=== PATIENT | female | born 1995 | race Caucasian/White ===

== ENCOUNTER 2016-12-11 13:03 | Emergency (ER) | payer OTHER ==
[2016-12-11 14:12] VITALS: BP 131/68
--- NOTE | 2016-12-11 14:29 | UC ---
Abdominal Pain Female HPI - HPI Summary HPI Summary: compalint of nausea vomiting and diarrhea that started 2 daysa go fever for the fisrt day but it resolved vomiting approx 2-3x day last epiosode of vomiting and diarrhea this morning able to drink fluids in between vomiting denies dysuria no close contacts with illness taking pepto bismal without relief - History of Current Complaint Chief Complaint: UCAbdominalPain Stated Complaint: DIARRHEA,VOMITTING Time Seen by Provider: 12/11/16 14:22 Hx Obtained From: Patient Hx Last Menstrual Period: 11/29/16 Allergies/Adverse Reactions: Allergies Allergy/AdvReac Type Severity Reaction Status Date / Time Penicillins Allergy Rash Verified 12/11/16 14:12 Home Medications: Home Medications Bismuth Subsalicylate [Pepto-Bismol Max Strength] 525 mg PO DAILY 12/11/16 [ History Confirmed 12/11/16] PMH/Surg Hx/FS Hx/Imm Hx Previously Healthy: Yes Endocrine History Of: Denies: Diabetes, Thyroid Disease, Hyperthyroidism, Hypothyroidism, Dyslipidemia Cardiovascular History Of: Denies: Cardiac Disorders, Hypertension, Pacemaker/ICD, Myocardial Infarction , Congestive Heart Failure, Atrial Fibrillation, Deep Vein Thrombosis, Bleeding Disorders Respiratory History Of: Denies: COPD, Asthma, Bronchitis, Pneumonia, Pulmonary Embolism GI/ History Of: Denies: Gastroesophageal Reflux, Ulcer, Gastrointestinal Bleed, Gall Bladder Disease, Kidney Stones, Diverticulitis, Renal Disease, Urosepsis Neurological History Of: Denies: TIA, CVA, Dementia, Seizures, Migraine Psychological History Of: Reports: Depression Cancer History Of: Denies: Lung Cancer, Colorectal Cancer, Breast Cancer, Prostate Cancer, Cervical Cancer Other History Of: Negative For: HIV, Hepatitis B, Hepatitis C, Anticoagulant Therapy - Surgical History Surgical History: None - Family History Known Family History: Positive: None, Other - no FMH of hearing disorders Negative: Cardiac Disease, Hypertension, Diabetes - Social History Occupation: Employed Full-time Lives: With Family Alcohol Use: None Substance Use Type: None Smoking Status (MU): Never Smoked Tobacco Review of Systems Constitutional: Fever Skin: Negative Eyes: Negative ENT: Negative Respiratory: Negative Cardiovascular: Negative Gastrointestinal: Vomiting, Diarrhea Genitourinary: Negative Motor: Negative Neurovascular: Negative Musculoskeletal: Negative Neurological: Negative Psychological: Negative All Other Systems Reviewed And Are Negative: Yes Physical Exam Triage Information Reviewed: Yes Appearance: No Pain Distress, Well-Nourished Vital Signs: Initial Vital Signs Temp 99.8 F 12/11/16 14:08 Pulse 106 12/11/16 14:08 Resp 16 12/11/16 14:08 BP 131/68 12/11/16 14:08 Pulse Ox 100 12/11/16 14:08 Vital Signs Reviewed: Yes Eyes: Positive: Conjunctiva Clear ENT: Positive: Pharynx normal, TMs normal Neck: Positive: No Lymphadenopathy Respiratory: Positive: Lungs clear, Normal breath sounds, No respiratory distress Cardiovascular: Positive: RRR, No Murmur, Pulses Normal Abdomen Description: Positive: No Organomegaly, Soft, Other: - diffuse mild tenderness throughout abdomen. Negative: CVA Tenderness (R), CVA Tenderness (L) , Distended, Guarding Bowel Sounds: Positive: Hyperactive Musculoskeletal: Positive: No Edema Neurological: Positive: Alert Psychological Exam: Normal Skin Exam: Normal Abd Pain Female Course/Dx - Course Course Of Treatment: exam completed. diffuse abdominal pain. fever has resolved. will treat nasuea if symptoms do not steadily improve or worsen she will seek further evaluation in the ED - Differential Dx/Diagnosis Differential Diagnosis: Other - gastroenteritis Provider Diagnoses: gastroenteritis Discharge - Discharge Plan Condition: Stable Disposition: HOME Prescriptions: Ondansetron TAB* [Zofran Tab*] 4 mg PO Q6H PRN #12 tab PRN Reason: Nausea Patient Education Materials: Gastroenteritis (ED) Forms: *Work Release Referrals: Marlin Escalante MD [Primary Care Provider] - Additional Instructions: Start zofran as directed GASTROENTERITIS What is Gastroenteritis? Gastroenteritis is an inflammation of the stomach and bowel that is often called the stomach "flu.'' It should only last 2-4 days. You usually get gastroenteritis because you've been in contact with someone who's already infected or because you've eaten contaminated food, or drank contaminated water. Many different viruses can cause intestinal problems but the signs and symptoms are usually the same: watery diarrhea, abdominal cramps, and nausea or vomiting. Symptoms Might Include: Abdominal cramps Diarrhea Nausea Vomiting Blood or mucus in stools Muscle aches Headaches Fever Extreme exhaustion Treatment Recommendations: Decrease activity until you feel better or the diarrhea and vomiting are gone. Take clear liquids, such as aimee paul, cola, water, tea, broth, and gelatin, for the first 24 hours or until the diarrhea and vomiting stops. During the next 24 hours you may eat bland foods like cooked cereals, rice, soup, bread, crackers, baked potatoes, eggs, or applesauce. Do not eat fruits, vegetables, fried or spicy foods, bran, candy, dairy products (such as milk or ice cream), apple juice, or alcoholic beverages. You may go back to your normal diet after 2 to 3 days. Drink 8 to 12 glasses of liquid a day. Most of the problems with gastroenteritis are caused by loss of water through vomiting and diarrhea. You may take ibuprofen (Motrin, Advil) or acetaminophen (Tylenol) for fever and muscle aches. Call Your Doctor or Return Here IF: Your symptoms last for more than 3 days. You have severe pain in the abdomen (area around the stomach) or rectum. You have a high temperature. You find blood, mucus, or worms in your stool. You have signs of dehydration (water loss), including dry mouth, excessive thirst, crinkled skin, little or no urination, dizziness, or light-headedness. You have any other new symptoms that worry you.
== END 2016-12-11 14:47 | disposition home or self-care (01) ==
LOC: UCCORT 13:03
DX: K52.9 Noninfective gastroenteritis and colitis, unspecified (principal); Z88.2 Allergy status to sulfonamides
CPT/HCPCS: 99212; G0463